=== PATIENT | female | born 2000 | race Caucasian/White ===

== ENCOUNTER → 2020-06-04 | Outpatient (CLI) | payer BC, SELFPAY ==
[2020-06-05 15:27] LABS: Chlamydia Trachomatis by PCR Negative (Negative); Neisserai gonorrhoeae by PCR Negative (Negative); Probe Check PASS; Sample Adequacy Control PASS; Specimen Processing Control PASS
== END | disposition home or self-care (01) ==
LOC: LABSPEC 06-05 09:00
PROVIDERS: PCP Family Medicine; Visit Provider Obstetrics & Gynecology
DX: Z12.4 Encounter for screening for malignant neoplasm of cervix (principal); Z11.3 Encounter for screening for infections with a predominantly sexual mode of transmission
CPT/HCPCS: 87491; 87591; 88175; G0145

== ENCOUNTER → 2021-06-24 10:33 | Outpatient (CLI) | payer BC, SELFPAY ==
[2021-06-24 14:16] LABS: HIV - WCH Non-Reactive (Nonreactive)
[2021-06-26 16:19] LABS: Gonococcus By Nucleic Acid AMP Negative (Negative)
[2021-06-26 16:23] LABS: Chlamydia By Nucleic Acid AMP Positive (Negative)
== END ==
PROVIDERS: PCP Family Medicine; Visit Provider Obstetrics & Gynecology
DX: Z12.4 Encounter for screening for malignant neoplasm of cervix (principal); Z11.3 Encounter for screening for infections with a predominantly sexual mode of transmission; Z20.6 Contact with and (suspected) exposure to human immunodeficiency virus [HIV]
CPT/HCPCS: 36415; 86703; 87491; 87591; 88175; G0145

== ENCOUNTER → 2021-07-17 | Outpatient (CLI) | payer BC, SELFPAY ==
--- NOTE | 2021-07-17 | IMM_PTH ---
PATIENT: JOSSY WISDOM LOC: [facility] U#:[id number] AGE/SX: 20/F ROOM: RE07/17/[address]: Dr. Tavares Brooks MD : 2000 BED: DIS: 07/17/2021 SPEC #: [id number] RECD: 07/21/21 11:51 STATUS: RICK REQ #: [id number] CHRISTOPHER: 07/17/21 00:[address]: Tavares Brooks DEPT: IMMUNOHISTOCHEMISTRY RECD BY: Georgette Sylvester ENTERED: 07/21/21 11:51 SP TYPE: IMMUNO OTHR DR: Dr. Mario Ryan MD Tissues: B - Uterine cervix, NOS Procedures: p16 (initial) KI-67 (add) PHYSICIAN & INSTITUTION [place] [facility] [id number] SPECIMEN INFORMATION: Tissue Source: B ? Cervix, four-quadrant biopsy Clinical Info: LSIL Specimen Number: [id number] CPT code: 49169, 71773 METHODOLOGY: Deparaffinized sections of prefer/formalin-fixed tissue or PAP/DQ stained slides are incubated with monoclonal/polyclonal antibodies/oligonucleotide probes. Localization is made via biotin free immunoperoxidase method. Appropriate controls are performed and reacted as expected. Results on target cell population are indicated in the following table: RESULTS: ANTIBODY / CLONE RESULT Block B P16 (E6H4) positive, patchy Ki-67 (30-9) positive, low These tests were developed and their performance characteristics determined by [facility]. They may not have been cleared or approved by the [place]. Food and Drug Administration. The FDA has determined that such clearance or approval is not necessary. The above immunohistochemical/dualISH markers are ordered and reviewed by the Pathologist. INTERPRETATION: Lesli Cervix, four-quadrant biopsy: Mild squamous dysplasia. DANIEL:darren 07/22/2021
--- NOTE | 2021-07-17 | CER_PTH ---
PATIENT: JOSSY WISDOM LOC: [facility] U#:[id number] AGE/SX: 20/F ROOM: RE07/17/[address]: Dr. Tavares Brooks MD : 2000 BED: DIS: 07/17/2021 SPEC #: [id number] RECD: 07/17/21 15:28 STATUS: RICK RYLEE #: [id number] CHRISTOPHER: 07/17/21 00:[address]: Tavares Brooks DEPT: SURGICAL PATHOLOGY RECD BY: Lorraine Doe ENTERED: 07/18/21 07:42 SP TYPE: CERV OTHR DR: Dr. Mario Ryan MD Tissues: A - Endocervical B - Uterine cervix, NOS Procedures: Surgery Specimen Level IV HEADER OPERATION: Colposcopy with ECC and cervical biopsy PRE-OP DIAGNOSIS: LSIL pap TISSUE SUBMITTED: A ? ECC, B ? Four-quad cervical biopsies MICROSCOPIC DIAGNOSIS A. ECC: Fragments of benign endocervical epithelium and endocervical mucosa, blood and mucous, negative for dysplasia. B. Cervix, four-quadrant biopsy: Mild squamous dysplasia (LGSIL and LI I). Dysplastic changes also involve endocervical glands. Moderate to marked chronic inflammation. See comment. DANIEL:darren 07/21/2021 COMMENT B. Immunohistochemistry ([id number]) for surrogate HPV marker (p16) supports the above diagnosis. MICROSCOPIC DESCRIPTION Slides are reviewed. GROSS DESCRIPTION A - Received in fixative is one container labeled with the patient's name and designated ECC. The specimen consists of multiple fragments of hemorrhagic soft tissue that in aggregate measure 1 x 1 x 0.1 cm. The specimen is totally submitted in one cassette. B - Received in fixative is one container labeled with the patient's name and designated four-quadrant cervical biopsy. The specimen consists of multiple irregular fragments of light hughes soft tissue that in aggregate measure 1.5 x 0.3 x 0.1 cm. The specimen is totally submitted in one cassette. / DANIEL:darren 07/18/21 TC:5 CPT: 33528 x2
[2021-07-21 05:07] LABS: Chlamydia By Nucleic Acid AMP Negative (Negative)
[2021-07-22 08:22] LABS: Gonococcus By Nucleic Acid AMP Negative (Negative)
== END | disposition home or self-care (01) ==
LOC: LABSPEC 14:50
PROVIDERS: PCP Family Medicine; Visit Provider Obstetrics & Gynecology
DX: R87.622 Low grade squamous intraepithelial lesion on cytologic smear of vagina (LGSIL) (principal); Z11.3 Encounter for screening for infections with a predominantly sexual mode of transmission
CPT/HCPCS: 87491; 87591; 88305; 88341; 88342